=== PATIENT | male | born 1980 | race Caucasian/White ===

== ENCOUNTER 2017-07-11 07:21 | Day surgery (SDC) | payer OTHER, SELFPAY ==
[2017-07-09 13:07] VITALS: BP 122/77; PULSE 80; RESP 16; TEMP 37.2; O2SAT 100; BMI 22.4
[2017-07-11] VITALS (13 sets, daily range): BP systolic 105–152; BP diastolic 60–86; PULSE 66–97; RESP 14–26; TEMP 37.1; O2SAT 94–100
--- NOTE | 2017-07-11 09:14 | P.PCN_ITS ---
[facility] Procedure Note Procedure Note:: Upper Endoscopy Procedure Report: Esophagogastroduodenoscopy with cold biopsies Endoscopost: Terry Iglesias II, MD Referring Physician: Alex Campbell M.D. Date of Procedure: July 11, 2017 Equipment: Olympus GIF 180 standard upper endoscope Sedation: Fentanyl 200 mg IV/ Versed 9 mg IV Indications: Mr. Gomes is a 36-year-old gentleman who has had epigastric/ periumbilical abdominal discomfort. He also noted some hematochezia recently. This occurred more than a month ago. He did see Dr. Alex Campbell M.D. in the office. On Friday he developed hematemesis. He reports moderate bloating, heartburn and reflux. He had the nausea and vomiting with retching on Friday at the time of his hematemesis. He reports no melena. He reports no early satiety or weight loss. His grandmother had bleeding ulcers. He has had diarrhea since he was young. Procedure: Prior to the procedure, a history and physical exam was performed, and patient' s medications and allergies were reviewed. The risks, benefits and alternatives of the sedation and procedure were discussed with the patient. All questions were answered and informed consent was obtained. The patient was brought to the procedure room. Patient identification and proposed procedure were verified by the physician and the nurse. The patient was placed in a left lateral decubitus position and the scope was passed under direct vision. Throughout the procedure, the patient's blood pressure, pulse, and oxygen saturations were monitored continuously. The upper GI endoscopy was accomplished without difficulty. The patient tolerated the procedure well. Findings: The scope was passed directly into the upper esophagus and advanced to the third portion of the duodenum. The post bulbar duodenum and duodenal bulb were normal with normal mucosa and conniventes. There were no scalloped folds or evidence of celiac disease. The scope was withdrawn through a normal duodenal bulb and pylorus into the stomach. There was bile reflux with mild linear erythema of the antrum consistent linear reactive gastritis. The remainder of the antrum, body and fundus of the stomach were grossly normal. Upon retroflexion there was a very small sliding hiatal hernia. 2 biopsies were taken in the antrum and along the lesser curvature for histology to rule out gastritis and/or H pylori. The scope was then withdrawn into the esophagus. There was a Lizeth-Valdovinos tear along the lesser curvature. There was also evidence of grade C reflux esophagitis. Cold biopsies were taken from 2 short tongues of salmon colored mucosa to rule out short segment Klein's esophagus. Impression: 1. Grade C reflux esophagitis (LA classification) with small sliding hiatal hernia 2. Healing Lizeth-Valdovinos tear 3. Bile reflux with linear reactive gastritis (mild) Plan: I am going to place patient on omeprazole 40 mg p.o. daily. I will follow up the biopsies. I will proceed with colonoscopy for diagnostic evaluation. I do feel that the patient has functional dyspepsia and chronic GERD. He may also have chronic IBS-diarrhea.
--- NOTE | 2017-07-11 09:34 | HMH.PROC ---
[facility] Procedure Note Procedure Note:: Colonoscopy Procedure Report: Colonoscopy with cold snare polypectomy and cold biopsies Endoscopist: Terry Iglesias II, MD Referring physician: Alex Campbell M.D. Date of Procedure: July 11, 2017 Equipment: Olympus 180 variable stiffness pediatric colonoscope Sedation: Fentanyl 200 mg IV/ Versed 18 mg IV Indication: Mr. Gomes is a 36-year-old gentleman who has had epigastric/periumbilical abdominal discomfort. He also noted some hematochezia recently. This occurred more than a month ago. He did see Dr. Alex Campbell M.D. in the office. On Friday he developed hematemesis. He reports moderate bloating, heartburn and reflux. He had the nausea and vomiting with retching on Friday at the time of his hematemesis. He reports no melena. He reports no early satiety or weight loss. His grandmother had bleeding ulcers. He has had diarrhea since he was young. The patient reports no family history of colitis, Crohn's disease or colon cancer. His mother had acute diverticulitis requiring colon resection, colostomy and eventual reversal of colostomy. Procedure: Prior to the procedure, a history and physical exam was performed, and patient's medications and allergies were reviewed. The risks, benefits and alternatives of the sedation and procedure were discussed with the patient. All questions were answered and informed consent was obtained. The patient was brought to the procedure room. Patient identification and proposed procedure were verified by the physician and the nurse. The patient was placed in a left lateral decubitus position and the scope was passed under direct vision. Throughout the procedure, the patient's blood pressure, pulse, and oxygen saturations were monitored continuously. The colonoscopy was accomplished without difficulty. The patient tolerated the procedure well. Findings: On digital rectal examination there was normal rectal tone. There were no external hemorrhoids. The colonoscope was introduced through the anal canal to the rectum and advanced to the cecum. The ileocecal valve and appendiceal orifice were identified. The scope was advanced a short distance into the ileum which appeared grossly normal. The scope was then withdrawn into the colon. There were 3 colon polyps identified in the ascending ?2 and descending ?1. These ranged in size from 6-10 mm and were all removed via cold snare polypectomy. Cold biopsies were taken from the right colon to rule out microscopic/lymphocytic colitis. There were mildly scattered diverticuli throughout the descending and sigmoid colon (LEFT colon). The rectum itself was normal. Upon retroflexion within the rectum there were grade 1 internal hemorrhoids. Impression: 1. Colonic polyps ?3 2. Mild left-sided diverticulosis 3. Grade 1 internal hemorrhoids Plan: I will follow up the biopsies and polyp histology. I am going to recommend dietary measures, fiber bulk and probiotic therapy. I will have him follow-up in the office in 8-12 weeks to assess for clinical improvement.
--- NOTE | 2017-07-11 09:37 | P.PCN_ITS ---
[facility] Procedure Note Procedure Note:: Colonoscopy Procedure Report: Colonoscopy with cold snare polypectomy and cold biopsies Endoscopist: Terry Iglesias II, MD Referring physician: Alex Campbell M.D. Date of Procedure: July 11, 2017 Equipment: Olympus 180 variable stiffness pediatric colonoscope Sedation: Fentanyl 200 mg IV/ Versed 18 mg IV Indication: Mr. Gomes is a 36-year-old gentleman who has had epigastric/ periumbilical abdominal discomfort. He also noted some hematochezia recently. This occurred more than a month ago. He did see Dr. Alex Campbell M.D. in the office. On Friday he developed hematemesis. He reports moderate bloating, heartburn and reflux. He had the nausea and vomiting with retching on Friday at the time of his hematemesis. He reports no melena. He reports no early satiety or weight loss. His grandmother had bleeding ulcers. He has had diarrhea since he was young. The patient reports no family history of colitis, Crohn's disease or colon cancer. His mother had acute diverticulitis requiring colon resection, colostomy and eventual reversal of colostomy. Procedure: Prior to the procedure, a history and physical exam was performed, and patient' s medications and allergies were reviewed. The risks, benefits and alternatives of the sedation and procedure were discussed with the patient. All questions were answered and informed consent was obtained. The patient was brought to the procedure room. Patient identification and proposed procedure were verified by the physician and the nurse. The patient was placed in a left lateral decubitus position and the scope was passed under direct vision. Throughout the procedure, the patient's blood pressure, pulse, and oxygen saturations were monitored continuously. The colonoscopy was accomplished without difficulty. The patient tolerated the procedure well. Findings: On digital rectal examination there was normal rectal tone. There were no external hemorrhoids. The colonoscope was introduced through the anal canal to the rectum and advanced to the cecum. The ileocecal valve and appendiceal orifice were identified. The scope was advanced a short distance into the ileum which appeared grossly normal. The scope was then withdrawn into the colon. There were 3 colon polyps identified in the ascending ?2 and descending ?1. These ranged in size from 6-10 mm and were all removed via cold snare polypectomy. Cold biopsies were taken from the right colon to rule out microscopic/lymphocytic colitis. There were mildly scattered diverticuli throughout the descending and sigmoid colon (LEFT colon). The rectum itself was normal. Upon retroflexion within the rectum there were grade 1 internal hemorrhoids. Impression: 1. Colonic polyps ?3 2. Mild left-sided diverticulosis 3. Grade 1 internal hemorrhoids Plan: I will follow up the biopsies and polyp histology. I am going to recommend dietary measures, fiber bulk and probiotic therapy. I will have him follow-up in the office in 8-12 weeks to assess for clinical improvement.
== END 2017-07-11 10:50 | disposition home or self-care (01) ==
PROVIDERS: PCP Internal Medicine; Visit Provider Internal Medicine Gastroenterology
PROC: 0DJ08ZZ Inspection of Upper Intestinal Tract, Via Natural or Artificial Opening Endoscopic (ICD-10-PCS; CPT 43235; principal; 2017-07-11 08:30)
DX: K21.0 Gastro-esophageal reflux disease with esophagitis (principal); K44.9 Diaphragmatic hernia without obstruction or gangrene; K22.6 Gastro-esophageal laceration-hemorrhage syndrome; K29.70 Gastritis, unspecified, without bleeding; K63.5 Polyp of colon; K57.30 Diverticulosis of large intestine without perforation or abscess without bleeding; K64.0 First degree hemorrhoids
CPT/HCPCS: 43239; 45380; 99152; 99153

== ENCOUNTER → 2017-09-29 15:18 | Outpatient (POV) | payer OTHER, SELFPAY | PROVIDERS: Visit Provider Nurse Practitioner Acute Care | DX: Z00.00 Encounter for general adult medical examination without abnormal findings (principal) ==